=== PATIENT | female | born 1995 | race Caucasian/White ===

== ENCOUNTER 2018-05-21 10:48 | Emergency (ER) | payer OTHER ==
[~2018-05-21] VITALS: Ht 182.9 cm; Wt 97.0 kg
[~2018-05-21 10:48] MED LIST: AMOXICILLIN500 MG PO; MEDDOSEPAK PO; NO; VENLAFAXINE150 MG PO; ZOFRAN4 MG/TAB PO
[2018-05-21 11:31] VITALS: BP 122/77
== END 2018-05-21 11:37 | disposition home or self-care (01) ==
LOC: ED 10:48
DX: T18.128A Food in esophagus causing other injury, initial encounter (principal); X58.XXXA Exposure to other specified factors, initial encounter; Y93.89 Activity, other specified; Y92.009 Unspecified place in unspecified non-institutional (private) residence as the place of occurrence of the external cause